=== PATIENT | male | born 1970 | race Caucasian/White ===

== ENCOUNTER 2016-10-16 13:14 | Observation (INO) | payer SELFPAY ==
[~2016-10-16] VITALS: Ht 170.2 cm; Wt 87.9 kg
[2016-10-16] MEDS ORDERED: NITROGLYCERIN OINT 2% 1GM PACKET EXT ONE (13:45)
[2016-10-16] MEDS ORDERED: ONDANSETRON INJ 2 MG/ML 2 ML VIAL IV STA (13:53)
[2016-10-16] MEDS ORDERED: MoRPHine SULFATE 2 MG/ML CARP IV STA ×3 (13:53→19:50)
[2016-10-16 14:01] LABS: BASO % 0.3 %; BASO ABS # 0.02 K/uL (0-0.2); COMPLETE YES; EOS % 2.8 %; HEMATOCRIT 44.6 % (42-52); IG% 0.4 %; LYMPH % 25.8 %; LYMPH ABS # 1.93 K/uL (1.2-3.4); MEAN CELL VOLUME 88.7 fL (80-100); MEAN CORPUSCULAR HEMOGLOBIN 31.2 pg (25-34); MEAN CORPUSCULAR HGB CONC 35.2 g/dl (32-36); MEAN PLATELET VOLUME 11.4 fL (7.4-10.4); MONO % 6.7 %; PLATELET COUNT 189 K/uL (130-400); RED BLOOD COUNT 5.03 M/uL (4.7-6.1); WHITE BLOOD COUNT 7.48 K/uL (4.8-10.8)
[2016-10-16] MEDS ORDERED: ASPI81TA28 PO (14:07)
--- NOTE | 2016-10-16 14:12 | DIAGNOSTIC IMAGING REPORT ---
CHEST ONE VIEW PORTABLE CLINICAL HISTORY: Atypical chest pain COMPARISON STUDY: No previous studies for comparison. FINDINGS: The heart is mildly enlarged. There is no failure. There is no focal pulmonary consolidation. There are no pleural effusions.[ IMPRESSION: Mild cardiomegaly. No evidence of focal pulmonary consolidation. No evidence of failure. Electronically signed by: Steve Rodriguez M.D. 10/16/2016 2:09 PM Dictated Date/Time: 10/16/2016 2:09 PM
[2016-10-16 14:17] LABS: PARTIAL THROMBOPLASTIN RATIO 0.9; PROTHROMBIN TIME (PATIENT) 10.3 SECONDS (9.0-12.0)
[2016-10-16 14:18] LABS: BUN/CREATININE RATIO 8.9 (10-20); CALCIUM 9.2 mg/dl (8.5-10.1); POTASSIUM 4.4 mmol/L (3.5-5.1)
[2016-10-16] MEDS ORDERED: LPT/40 PO (14:25)
[2016-10-16] MEDS ORDERED: METO50TA16 PO (14:25)
[2016-10-16] MEDS ORDERED: CLOP1TAB15 PO (14:25)
--- NOTE | 2016-10-16 15:15 | EMERGENCY ROOM VISIT NOTE ---
History Report prepared by Malou: Torrey Rahman Under the Supervision of: Dr. Yoel Guajardo M.D. First contact with patient: 13:26 Chief Complaint: CARDIAC ASSESSMENT Stated Complaint: CHEST HEAVINESS History of Present Illness The patient is a 45 year old male who presents to the Emergency Room with complaints of an episode of chest pain that occurred around 1 and a half hours ago. He says that he was nauseous and felt like vomiting all morning. He then went to work, and his chest got heavy and achy. His arms went numb, and his legs felt like needles. He also started sweating and getting short of breath. The patient rates the heaviness as a 2 out of 10 in severity, but he notes that it was very uncomfortable. The patient called his primary doctor's office and then decided to come here. Currently, the patient's shortness of breath and chest pain are mostly resolved. He now feels a tightness in his chest with minimal pain. He had a heart attack on the 01 of June, and had 2 stents placed in his left artery. The patient states that his right artery was 30% blocked. He says that the brief episode of chest pain was a bit similar to his heart attack, but his chest pain lasted longer during the heart attack. The patient did take an Aspirin earlier today. He denies any recent Viagra use. Source of History: patient Onset: 1 and a half hours ago Position: chest (pain) Symptom Intensity: heaviness was 2 out of 10 in severity Quality: ache, other (heaviness, now tightness) Timing: other (episode) Associated Symptoms: + SOB (gone now), + nausea, + numbness (arms), No vomiting (but felt like vomiting) Note: Associated symptoms: Legs felt like needles. Sweaty during episode. Review of Systems See HPI for pertinent positives & negatives. A total of 10 systems reviewed and were otherwise negative. Past Medical & Surgical Medical Problems: (1) Bronchitis (2) HTN (hypertension) Surgical Problems: (1) Heart attack (2) Heart attack (3) Hx of stent placement (4) Hx of stent placement Family History Diabetes mellitus Heart disease Hypertension Social History Smoking Status: Current Every Day Smoker Alcohol Use: occasionally Marital Status: single Occupation Status: employed Current/Historical Medications Scheduled Aspirin (Aspirin Ec), 81 MG PO DAILY Atorvastatin (Lipitor), 40 MG PO DAILY Clopidogrel (Plavix), 75 MG PO DAILY Metoprolol Tartrate (Lopressor) (Lopressor), 25 MG PO BID Allergies Coded Allergies: No Known Allergies (Unverified , 10/16/16) Physical Exam Vital Signs Date Time Temp Pulse Resp B/P Pulse Ox O2 Delivery O2 Flow Rate FiO2 10/16/16 14:44 48 13 95 10/16/16 14:39 46 24 95 10/16/16 14:34 49 15 96 10/16/16 14:29 80 15 10/16/16 14:24 48 16 96 10/16/16 14:19 58 20 93 10/16/16 14:17 94 Room Air 10/16/16 14:14 50 13 97 10/16/16 14:09 59 14 97 10/16/16 14:08 68 10/16/16 14:04 59 20 94 10/16/16 14:02 123/86 10/16/16 13:19 36.8 62 20 160/89 100 Room Air Physical Exam Constitutional: Vital signs reviewed. Eyes: Pupils are equal round reactive to light. Conjunctiva are noninjected. ENT: Pharynx is clear without erythema or exudate. Mucous membranes are moist. Neck supple without meningeal signs. Respiratory: Clear to auscultation bilaterally. Breath sounds are equal bilaterally. Cardiovascular: Regular rate and rhythm. No rubs or gallops. GI: Soft, nondistended and nontender. Bowel sounds are present. Musculoskeletal: No peripheral edema. No lower extremity tenderness. Integumentary: No cyanosis. Neurological: The patient is awake and alert. No focal deficits. Psychiatric: Normal affect. Medical Decision & Procedures ER Provider Diagnostic Interpretation: X-ray results as stated below per interpretation by me and the radiologist: CHEST ONE VIEW PORTABLE CLINICAL HISTORY: Atypical chest pain COMPARISON STUDY: No previous studies for comparison. FINDINGS: The heart is mildly enlarged. There is no failure. There is no focal pulmonary consolidation. There are no pleural effusions.[ IMPRESSION: Mild cardiomegaly. No evidence of focal pulmonary consolidation. No evidence of failure. Electronically signed by: Steve Rodriguez M.D. 10/16/2016 2:09 PM Dictated Date/Time: 10/16/2016 2:09 PM Laboratory Results 10/16/16 13:44 Red Blood Count 5.03, Mean Corpuscular Volume 88.7, Mean Corpuscular Hemoglobin 31.2, Mean Corpuscular Hemoglobin Concent 35.2, Mean Platelet Volume 11.4, Neutrophils (%) (Auto) 64.0, Lymphocytes (%) (Auto) 25.8, Monocytes (%) (Auto) 6.7, Eosinophils (%) (Auto) 2.8, Basophils (%) (Auto) 0.3, Neutrophils # (Auto) 4.79, Lymphocytes # (Auto) 1.93, Monocytes # (Auto) 0.50, Eosinophils # (Auto) 0.21, Basophils # (Auto) 0.02 10/16/16 13:44 Test 10/16/16 13:44 10/16/16 13:52 White Blood Count 7.48 K/uL (4.8-10.8) Red Blood Count 5.03 M/uL (4.7-6.1) Hemoglobin 15.7 g/dL (14.0-18.0) Hematocrit 44.6 % (42-52) Mean Corpuscular Volume 88.7 fL (80-100) Mean Corpuscular Hemoglobin 31.2 pg (25-34) Mean Corpuscular Hemoglobin Concent 35.2 g/dl (32-36) Platelet Count 189 K/uL (130-400) Mean Platelet Volume 11.4 fL (7.4-10.4) Neutrophils (%) (Auto) 64.0 % Lymphocytes (%) (Auto) 25.8 % Monocytes (%) (Auto) 6.7 % Eosinophils (%) (Auto) 2.8 % Basophils (%) (Auto) 0.3 % Neutrophils # (Auto) 4.79 K/uL (1.4-6.5) Lymphocytes # (Auto) 1.93 K/uL (1.2-3.4) Monocytes # (Auto) 0.50 K/uL (0.11-0.59) Eosinophils # (Auto) 0.21 K/uL (0-0.5) Basophils # (Auto) 0.02 K/uL (0-0.2) RDW Standard Deviation 40.3 fL (36.4-46.3) RDW Coefficient of Variation 12.6 % (11.5-14.5) Immature Granulocyte % (Auto) 0.4 % Immature Granulocyte # (Auto) 0.03 K/uL (0.00-0.02) Prothrombin Time 10.3 SECONDS (9.0-12.0) Prothromb Time International Ratio 1.0 (0.9-1.1) Activated Partial Thromboplast Time 24.3 SECONDS (21.0-31.0) Partial Thromboplastin Ratio 0.9 Anion Gap 4.0 mmol/L (3-11) Est Creatinine Clear Calc Drug Dose 102.0 ml/min Estimated GFR () 106.4 Estimated GFR (Non- 91.8 BUN/Creatinine Ratio 8.9 (10-20) Calcium Level 9.2 mg/dl (8.5-10.1) Bedside Troponin I 0.000 ng/ml (0-0.045) Laboratory results as reviewed by me. Medications Administered Medications (Trade) Dose Ordered Sig/Pancho Route Start Time Stop Time Status Last Admin Dose Admin Morphine Sulfate (MoRPHine SULFATE INJ) 2 mg NOW STAT IV 10/16/16 13:53 10/16/16 13:54 DC 10/16/16 13:59 2 MG Ondansetron HCl (Zofran Inj) 4 mg NOW STAT IV 10/16/16 13:53 10/16/16 13:54 DC 10/16/16 13:59 4 MG ECG Indication: chest pain Rate (beats per minute): 57 Rhythm: sinus bradycardia Findings: Q waves (Inferior), T-wave inversion (lead 3 and AVF), no ectopy ED Course 1328: The patient was evaluated in room C8. A complete history and physical exam was performed. 1345: Ordered Nitroglycerin 2% Oint 1 inch EXT. 1352: I reevaluated the patient and he says that he gets severe migraines with nitro and would prefer to not get it because it would take him days to recover. He rates his current chest pain as a 1 out of 10. I will give the patient Morphine instead. 1353: Ordered Zofran Inj 4 mg IV, Morphine Sulfate Inj 2 mg IV. 1429: I reevaluated the patient and his chest pain is gone. 1448: I reevaluated the patient and he is chest pain free. I discussed the test results with him and recommended hospitalization. His heart rate is 40-50 but denies having any symptoms with it and his blood pressure is stable. The patient verbally expressed understanding and agreement of the treatment plan. The patient will be evaluated for further treatment. 1452: I discussed the patient with Dr. Santiago Hassan development assistant - he will evaluate the patient for further treatment. Medical Decision This is a 45-year-old male who presents with chest pain. Differential diagnosis includes unstable angina, [place], pleurisy, GERD, pneumonia. I did perform a limited focused review of portions of the patient's old chart on the electronic medical record. The patient has had no prior visits. I did evaluate the patient as noted above. The patient has a history of [place] with 2 stents in May of last year. He is presenting with symptoms similar to his prior [place] but less severe. IV access was established. 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 The patient rates his pain a 2 out of 10 in severity. Initially had ordered nitroglycerin for the patient but he states that he gets severe migraines lasting days if he gets nitroglycerin and so I canceled the order. He was given morphine 2 mg and Zofran 4 g IV. I did order and personally review the patient's 12-lead EKG and chest x-ray as described above. His 12-lead EKG demonstrates Q waves and T wave inversions in the inferior leads as noted above. No old EKGs available for comparison. He does state that he has a 30% blockage in the right coronary artery but that his stents were on the left side. I did order and review the patient's blood work as noted in the electronic medical record. His troponin is negative. I did reassess the patient. He states that his chest discomfort is completely resolved. He has no symptoms at this time. His heart rate goes between 40-50s but the patient denies any lightheadedness or weakness in his blood pressure remained stable. I did discuss the test results with the patient. He did state that he had an aspirin prior to arrival. I did recommend hospitalization for further workup of his symptoms and repeat cardiac enzymes. I did discuss the case with Dr. Henderson and the patient case manager. Consults Time Called: [phone] Consulting Physician: Dr. Santiago Hassan development assistant Returned Call: [phone] I discussed the patient with Dr. Santiago Hassan development assistant - he will evaluate the patient for further treatment. Impression Primary Impression: Precordial chest pain Additional Impressions: Abnormal EKG Bradycardia Scribe Attestation The scribe's documentation has been prepared under my direct and personally reviewed by me in its entirety. I confirm that the note above accurately reflects all work, treatment, procedures, and medical decision making performed by me. Departure Information Dispostion Being Evaluated By Hospitalist Referrals Tio Chávez M.D. (PCP) Patient Instructions My [facility] Problem Qualifiers
[2016-10-16] MEDS ORDERED: ALUMINUM/MAGNESIUM/SIMETH (MAALOX MAX) 30 ML UDC PO PRN (16:00)
[2016-10-16] MEDS ORDERED: ACETAMINOPHEN 325 MG TAB PO PRN (16:00)
[2016-10-16] MEDS ORDERED: POLYETHYLENE (MIRALAX) 17 GM PACK PO PRN (16:00)
[2016-10-16] MEDS ORDERED: ONDANSETRON INJ 2 MG/ML 2 ML VIAL IV PRN (16:00)
[2016-10-16] MEDS ORDERED: MAGNESIUM HYDROXIDE SUSP 30 ML UDC PO PRN (16:00)
[2016-10-16 16:21] VITALS: O2SAT 98; Ht 170.2 cm; Wt 87.9 kg
[2016-10-16] MEDS ORDERED: IV FLUIDS COMPLETED PRN (16:30)
[2016-10-16] MEDS ORDERED: TPRSR/50 PO (16:49)
[2016-10-16] MEDS ORDERED: LSN5 PO (16:49)
[2016-10-16] MEDS ORDERED: OPTIRAY 320 IV PRN (17:00)
[2016-10-16 17:23] LABS: FERRITIN 163.8 ng/ml (8.0-388.0); THYROID STIMULATING HORMONE 1.23 uIu/ml (0.300-4.500)
[2016-10-16 17:59] VITALS: BP 164/76; PULSE 46; TEMP 36.4; O2SAT 99
--- NOTE | 2016-10-16 18:04 | DIAGNOSTIC IMAGING REPORT ---
CHEST COMBO ANGIO DISSECTION CLINICAL HISTORY: Chest pain. Chest heaviness. COMPARISON STUDY: Chest radiograph performed earlier today. TECHNIQUE: Unenhanced and arterial phase imaging of the chest was performed. Injection of 94 cc Optiray 320 IV was uneventful. Sagittal and coronal reconstructions were viewed as well as maximal intensity projections on an independent 3-D workstation. FINDINGS: Caliber of the thoracic aorta is normal. There is no evidence for thoracic aortic intramural hematoma or dissection. Cardiac size is at the upper limits of normal. There is a stent within the right coronary artery. Patency of the stent cannot be assessed on this exam. There is mild to moderate coronary artery calcification. No large central pulmonary embolus is present. The remainder of the pulmonary arteries are inadequately assessed on this exam due to suboptimal opacification. Central airways are patent. There is no consolidation to suggest pneumonia. There is no pneumothorax or pleural effusion. A few tiny pulmonary nodules are likely benign. Bony thorax and upper abdomen are unremarkable. IMPRESSION: 1. No thoracic aortic dissection. 2. No central pulmonary embolus. The remainder of the pulmonary arteries are suboptimally assessed due to suboptimal opacification. 3. No acute intrathoracic findings. 3. Right coronary artery stent in place. Patency of the stent cannot be assessed on this exam. Electronically signed by: Benedict Garrett M.D. 10/16/2016 6:01 PM Dictated Date/Time: 10/16/2016 5:54 PM
--- NOTE | 2016-10-16 18:11 | History and Physical ---
History & Physical Date & Time of Service: Oct 16, 2016 at 17:47 Chief Complaint: Chest Heaviness Primary Care Physician: Tio Chávez M.D. History of Present Illness Source: patient, hospital records This is a 45 y/o male with a history of inferior AK 06/01/16 s/p stent placement 2, CAD, and HTN who presented to the ED on 10/16 with chest pressure, nausea, and numbness. The patient developed chest pressure on the left side of his chest that was accompanied with sweats. He states that he had been nauseous since earlier that morning as well. He denies any acute shortness of breath with the onset of chest pain, however, he states that over the last few days he has had worsening shortness of breath. He is also had numbness and tingling in his arms and legs for the last 3 weeks. At the onset of the chest pain. The patient had completely numbness in his left arm and tingling in his legs bilaterally. The patient had an inferior AK in May 2016 demonstrated [place]. He had 2 stents placed in left coronary arteries, but he is not sure which. The patient denies any particularly strenuous activity today. The patient is a current smoker, although he has greatly cut down. He also reports cutting down his alcohol use. He currently complains of a 1/10 left chest pressure. He is denying any nitroglycerin as this gives him severe headaches. The patient denies fevers, chills, palpitations, claudication, cough, wheezing, vomiting, abdominal pain, dysuria, hematuria, urinary retention, paralysis, weakness. Past Medical/Surgical History Medical Problems: (1) Bronchitis Status: Resolved (2) HTN (hypertension) Status: Chronic H/o inferior AK 06/01/16 Surgical Problems: Hx of stent placement x 2 Status: Resolved Family History Coronary artery disease Diabetes mellitus Heart disease Hypertension Myocardial infarction at age less than 60 Social History Smoking Status: Current Every Day Smoker (1/2 ppd) Smokeless Tobacco Use: No Alcohol Use: socially (1-2 beers/week) Drug Use: none Marital Status: in relationship Housing status: lives with significant other Occupational Status: employed Allergies Coded Allergies: No Known Allergies (Unverified , 10/16/16) Home Medications Scheduled Aspirin (Aspirin Ec), 81 MG PO DAILY Atorvastatin (Lipitor), 40 MG PO DAILY Clopidogrel (Plavix), 75 MG PO DAILY Lisinopril (Lisinopril), 5 MG PO DAILY Metoprolol Succinate (Metoprolol Succinate ER), 25 MG PO BID Review of Systems Constitutional: + sweats, No chills, No fever Eyes: No diplopia, No eye pain, No worsening of vision ENT: No hearing loss, No sore throat, No trouble swallowing Respiratory: + shortness of breath (worsening last few days), No cough, No wheezing Cardiovascular: + chest pain (1/10 chest pressure, left side), No claudication , No palpitations Abdomen: + nausea, No pain, No vomiting Musculoskeletal: No calf pain, No joint pain, No muscle pain Genitourinary - Male: No dysuria, No hematuria, No urinary retention Neurologic: + numbness/tingling (L arm, legs bilaterally. first started 3 weeks ago), No paralysis, No weakness Integumentary: No color change, No itch, No rash Physical Exam Vital Signs Date Time Temp Pulse Resp B/P Pulse Ox O2 Delivery O2 Flow Rate FiO2 10/16/16 16:59 58 20 130/63 96 10/16/16 16:21 98 Room Air 10/16/16 15:22 60 15 125/63 98 Room Air 10/16/16 14:44 48 13 95 10/16/16 14:39 46 24 95 10/16/16 14:34 49 15 96 10/16/16 14:29 80 15 10/16/16 14:24 48 16 96 10/16/16 14:19 58 20 93 10/16/16 14:17 94 Room Air 10/16/16 14:14 50 13 97 10/16/16 14:09 59 14 97 10/16/16 14:08 68 10/16/16 14:04 59 20 94 10/16/16 14:02 123/86 10/16/16 13:19 36.8 62 20 160/89 100 Room Air General Appearance: WD/WN, no apparent distress, + obese Head: normocephalic, atraumatic Eyes: normal inspection, PERRL, EOMI ENT: normal ENT inspection, hearing grossly normal, pharynx normal Neck: supple, no JVD, trachea midline Respiratory/Chest: chest non-tender, lungs clear, normal breath sounds, no respiratory distress Cardiovascular: no gallop, no murmur, + bradycardia (regular rhythm) Abdomen/GI: normal bowel sounds, non tender, soft Extremities/Musculoskelatal: normal inspection, no calf tenderness, no pedal edema Neurologic/Psych: alert, normal mood/affect, oriented x 3 Skin: normal color, warm/dry, no rash Diagnostics Laboratory Results Results Past 24 Hours Test 10/16/16 13:44 10/16/16 13:52 10/16/16 16:28 Range/Units White Blood Count 7.48 4.8-10.8 K/uL Red Blood Count 5.03 4.7-6.1 M/uL Hemoglobin 15.7 14.0-18.0 g/dL Hematocrit 44.6 42-52 % Mean Corpuscular Volume 88.7 80-100 fL Mean Corpuscular Hemoglobin 31.2 25-34 pg Mean Corpuscular Hemoglobin Concent 35.2 32-36 g/dl Platelet Count 189 130-400 K/uL Mean Platelet Volume 11.4 7.4-10.4 fL Neutrophils (%) (Auto) 64.0 % Lymphocytes (%) (Auto) 25.8 % Monocytes (%) (Auto) 6.7 % Eosinophils (%) (Auto) 2.8 % Basophils (%) (Auto) 0.3 % Neutrophils # (Auto) 4.79 1.4-6.5 K/uL Lymphocytes # (Auto) 1.93 1.2-3.4 K/uL Monocytes # (Auto) 0.50 0.11-0.59 K/uL Eosinophils # (Auto) 0.21 0-0.5 K/uL Basophils # (Auto) 0.02 0-0.2 K/uL RDW Standard Deviation 40.3 36.4-46.3 fL RDW Coefficient of Variation 12.6 11.5-14.5 % Immature Granulocyte % (Auto) 0.4 % Immature Granulocyte # (Auto) 0.03 0.00-0.02 K/uL Prothrombin Time 10.3 9.0-12.0 SECONDS Prothromb Time International Ratio 1.0 0.9-1.1 Activated Partial Thromboplast Time 24.3 21.0-31.0 SECONDS Partial Thromboplastin Ratio 0.9 Sodium Level 141 136-145 mmol/L Potassium Level 4.4 3.5-5.1 mmol/L Chloride Level 107 98-107 mmol/L Carbon Dioxide Level 30 21-32 mmol/L Anion Gap 4.0 3-11 mmol/L Blood Urea Nitrogen 9 7-18 mg/dl Creatinine 1.00 0.60-1.40 mg/dl Est Creatinine Clear Calc Drug Dose 102.0 ml/min Estimated GFR () 106.4 Estimated GFR (Non- 91.8 BUN/Creatinine Ratio 8.9 10-20 Random Glucose 106 70-99 mg/dl Calcium Level 9.2 8.5-10.1 mg/dl Magnesium Level 2.2 1.8-2.4 mg/dl Ferritin 163.8 8.0-388.0 ng/ml Thyroid Stimulating Hormone (TSH) 1.230 0.300-4.500 uIu/ml Bedside Troponin I 0.000 0-0.045 ng/ml Diagnostic Radiology Reviewed the following studies and agree with interpretation as follows: Patient Name: DELIA COE Unit Number: [id number] Dictated: 10/16/161408 Transcribed: 10/16/161408 ARG Printed Date/Time: [~ rep prt dt]/[~ rep prt tm] [~ rep ct labl] - [~ rep ct ivnm] [facility] [place] [address] Dictated: 10/16/161408 Transcribed: 10/16/161408 ARG Printed Date/Time: [~ rep prt dt]/[~ rep prt tm] [~ rep ct labl] - [~ rep ct ivnm] Patient: DELIA COE Address1: [address] Rec: [id number] Address2: Acct ID: [id number] [facility] Zip: [place] [address] Date: 1970 Sex: M Room/Bed: Ref Phy: Tio Chávez M.D. SC: LAURENT Att Phy: Report #: [id number] Olya Phy: Tio Chávez M.D. Test: CXR1P Admit Phy: Relationship Specialist: TRACY Interpreting Phy: Steve Rodriguez M.D. Diagnosis: CHEST HEAVINESS Ordering Phy: Yoel Guajardo MD Service Date: 10/16/16 Admit Date: 10/16/16 MNE: [id number] CONF: DICTATED BY: Steve Rodriguez M.D.]] CC: Yoel Guajardo M.D. Jabbour, George M.D. Endcc: [~ rep ct add3]] CHEST ONE VIEW PORTABLE CLINICAL HISTORY: Atypical chest pain COMPARISON STUDY: No previous studies for comparison. FINDINGS: The heart is mildly enlarged. There is no failure. There is no focal pulmonary consolidation. There are no pleural effusions.[ IMPRESSION: Mild cardiomegaly. No evidence of focal pulmonary consolidation. No evidence of failure. Electronically signed by: Steve Rodriguez M.D. 10/16/2016 2:09 PM Dictated Date/Time: 10/16/2016 2:09 PM The status of this report is Signed. Draft = Not yet reviewed or approved by Radiologist. Signed = Reviewed and approved by Radiologist. <AttendingPhy></AttendingPhy> <FamilyPhy>Tio Chávez M.D.</FamilyPhy> < PrimaryPhy>Tio Chávez M.D.</PrimaryPhy> <UnitNumber>[id number]</UnitNumber> <VisitNumber>[id number]</VisitNumber> <PatientName>DELIA COE</PatientName> < DateOfBirth>1970</DateOfBirth> <Location>[facility]</Location> <ServiceDate></ServiceDate> <MNE>ESINDI</MNE> <OrderingPhy>Yoel Guajardo MD</ OrderingPhy> <OrderingPhyMNE>f rep ord dr dash</OrderingPhyMNE> <DictatingPhyMNE> f rep dict dr dash</DictatingPhyMNE> <CCListMNE>f rep ct mne</CCListMNE> < AdmittingPhyMNE>f pt admit dr dash</AdmittingPhyMNE> <AttendingPhyMNE>f pt attend dr dash</AttendingPhyMNE> <ConsultingPhyMNE>f pt consult dr dash</ConsultingPhyMNE> <FamilyPhyMNE>f pt fam dr dash</FamilyPhyMNE> <OtherPhyMNE>f pt other dr dash</OtherPhyMNE> < PrimaryPhyMNE>f pt prim care dr dash</PrimaryPhyMNE> <ReferringPhyMNE>f pt referring dr dash</ReferringPhyMNE> EKG Reviewed EKG and agree with interpretation as follows: 57 bpm, sinus bradycardia, inverted T waves in inferior leads, Q waves in inferior leads Impression Assessment and Plan 45 y/o male with a history of inferior AK 06/01/16 s/p stent placement 2, CAD, and HTN who presented to the ED on 10/16 with chest pressure, nausea, and numbness. Patient afebrile and vital signs stable on arrival. CXR showed no acute disease. EKG showed bradycardia with T-wave inversion and Q waves in inferior leads. Troponin negative. Labs otherwise grossly unremarkable. Left-sided chest pain--pt refusing nitro -Admit to telemetry for observation -Trend cardiac enzymes 3 -EKGs q am and prn with chest pain -Obtain records from [facility] regarding previous AK -NPO after midnight for possible stress test tomorrow if troponins remain negative -STAT CT dissection protocol to rule out dissection as well as PE. If negative , consider starting heparin drip H/o AK s/p stents x 2, CAD, HTN--BP stable -Continue aspirin, Plavix -Continue atorvastatin 40 mg PO qd, metoprolol succinate 25 mg PO BID, and lisinopril 5 mg PO qd Numbness/tingling -Check TSH, B12 and ferritin GI prophylaxis -Maalox Max 15 mL PO q4h prn dyspepsia -Milk of magnesia 30 mL PO q6h prn constipation -Miralax 17 gm PO qd prn constipation -Zofran 4 mg IV q6h prn nausea DVT prophylaxis -Enoxaparin 40 mg SC q24h -OSCAR warren and SCDs Code Status -Level I, FULL RESUSCITATION STATUS This chart was completed in part utilizing [employer] Speech Voice Recognition software. Attempts were made to minimize the grammatical errors, random word insertions, pronoun errors and incomplete sentences. Any formal questions or concerns about the content, text or information contained within the body of this dictation should be directly addressed to the provider for clarification. Level of Care Telemetry Advanced Directives Existing Living Will: No Existing Power of Preparation Supervisor Freezing: No Resuscitation Status FULL RESUSCITATION VTE Prophylaxis VTE Risk Assessment Done? Y/N: Yes Risk Level: Moderate Given or contraindicated: Enoxaparin (Lovenox)SQ, T.E.D. Stockings, SCD's Note Attending Admission note & Attestation: Pt seen/examined, chart reviewed, care plan d/w MISSY Concepcion. I agree w/ the pettit components of her documentation. 45yo male with known CAD, s/p inferior wall STEMI in 05/2016 with 2 stents ([facility]), presenting with left-sided chest pain radiating to the left scapula. Associated nausea and left arm symptoms. He also complains of restless legs type symptoms and paresthesias in the left arm and both legs. Latter present for several weeks. Did indeed refuse nitro multiple times today due to fear of inducing a migraine headache. Only agreeable to using morphine prn for chest discomfort. Shortly after I evaluated him, due to the arm symptoms and radiation to the back , we performed CTA dissection protocol. CTA was negative for PE or dissection. PMH, PSH, allergies, meds, sochx, famhx, ros - reviewed HR <60, o/w VSS gen - anxious neck - no JVD heart - nicki, s1, s2, no murmur lungs - CTA b/l chest - no reproducible chest wall pain abd - soft, NT ext - no edema neuro - legs appear "restless" throughout the visit psych - anxious A/P: Ongoing chest symptoms with negative work-up to date. Known CAD s/p AK 2015 with 2 stents deployed. I am unclear if his symptoms are ischemic in nature or due to other process. until more information is available will place on heparin drip in the event he is having unstable angina. Serial troponin levels. He appears to have restless legs. Check ferritin level, r/o Fe deficiency; check TSH; check b12. consider mirapex. NPO after MN tonight in the event he needs cardiac testing. John Henderson MD
[2016-10-16] MEDS ORDERED: HEPARIN IV LOW DOSE NO BOLUS SCH (18:37)
[2016-10-16] MEDS ORDERED: NITROGLYCERIN 0.4 MG SL PER TAB CHARGE SL PRN (19:45)
[2016-10-16] MEDS ORDERED: NICOTINE 7 MG/24 HR TDSY TD ONE (19:49)
[2016-10-16 19:54] VITALS: BP 125/69; PULSE 51; TEMP 36.7; O2SAT 97
[2016-10-16] MEDS ORDERED: MoRPHine SULFATE 2 MG/ML CARP ONE (20:02)
[2016-10-16 20:08] VITALS: BP 145/82; PULSE 55; O2SAT 97
[2016-10-16 20:22] VITALS: O2SAT 97
[2016-10-16] MEDS ORDERED: ASPIRIN 81 MG CHEW PO ONE (20:30)
[2016-10-16] MEDS: METOPROLOL SUCC 50MG EXT REL TAB PO SCH (20:35)
[2016-10-16 20:37] LABS: CKMB/CK RATIO 0.9 (0-3.0)
[2016-10-16] MEDS: HEPARIN 25,000 UNIT/500ML D5W 500 ML IV PRN (20:37)
[2016-10-16] MEDS ORDERED: METOPROLOL TARTRATE 25 MG TAB PO SCH (21:00)
[2016-10-16 22:46] LABS: CKMB/CK RATIO 0.9 (0-3.0)
--- NOTE | 2016-10-16 23:18 | Progress Note ---
Progress Note Date of Service Oct 16, 2016. Progress Note Phoned by nursing at approximately 19:45 stating that patient continued to have chest pain. I asked nursing to repeat EKG. I also ordered 0.4 Nitroglycerine SL tab, but was told by nurse that he was declining it. I also repeated 1 troponin. I went up to assess the patient. I arrived at the beside to assess. Patient states that overall chest pain is improved but still does have lingering pressure. He declines Nitroglycerine SL or paste because he has gotten bad headache when he got it with his first WI and wants to avoid that at all costs. Overall states that the chest pain is better. Vital signs were reviewed and normal Patient had regular rate and rhythm, normal S1 and S2 with no murmur, and normal pulses Repeat EKG revealed no changes acute changes since admission EKG. Plan: - 2 mg Morphine given to patient. Recommended attempting Nitro paste with chest pressure. - Reviewed EMR. Patient only got 81 mg ASA so I ordered additional 243 mg ASA for a total of 324 mg. - Heparin drip ordered by admitting MD. I have left this on for now and day team and can re-assess whether it is required. - Troponin reviewed from approximately 19:00 and 22:00. Both were negative. - Will continue to follow through evening in case of acute change in clinical status.
[2016-10-16] MEDS ORDERED: PRAMIPEXOLE DIHYDROCHLORIDE 0.5 MG TAB PO ONE (23:19)
[2016-10-16] MEDS ORDERED: PRAMIPEXOLE DIHYDROCHLORIDE 0.5 MG TAB PO PRN (23:30)
[2016-10-17 04:41] VITALS: BP 112/70; PULSE 53; TEMP 36.6; O2SAT 93
[2016-10-17 05:40] LABS: HEMATOCRIT 44.4 % (42-52); MEAN CELL VOLUME 88.8 fL (80-100); MEAN CORPUSCULAR HEMOGLOBIN 31.6 pg (25-34); MEAN CORPUSCULAR HGB CONC 35.6 g/dl (32-36); MEAN PLATELET VOLUME 11.1 fL (7.4-10.4); PLATELET COUNT 173 K/uL (130-400)
[2016-10-17 05:52] LABS: PARTIAL THROMBOPLASTIN RATIO 1.2
[2016-10-17] MEDS ORDERED: HEPARIN IV BOLUS 4,500 UNIT in SYRINGE 0 ML IV ONE (06:15)
[2016-10-17] MEDS: HEPARIN 25,000 UNIT/500ML D5W 500 ML IV PRN (06:16)
[2016-10-17 06:21] LABS: BLOOD UREA NITROGEN 10 mg/dl (7-18); BUN/CREATININE RATIO 9.3 (10-20); CALCIUM 8.8 mg/dl (8.5-10.1); CARBON DIOXIDE 29 mmol/L (21-32); CHLORIDE 105 mmol/L (98-107); GLUCOSE 143 mg/dl (70-99); POTASSIUM 4.1 mmol/L (3.5-5.1); SODIUM 139 mmol/L (136-145)
[2016-10-17 06:26] LABS: CKMB/CK RATIO 1.1 (0-3.0)
[2016-10-17 07:21] VITALS: BP 119/66; PULSE 49; TEMP 36.7; O2SAT 98
[2016-10-17] MEDS ORDERED: ENOXAPARIN 40 MG/0.4 ML SYR SC SCH (09:00)
[2016-10-17] MEDS ORDERED: NICOTINE 7 MG/24 HR TDSY TD SCH (09:00)
[2016-10-17] MEDS ORDERED: ASPIRIN 81 MG ECTAB PO SCH (09:00)
[2016-10-17] MEDS ORDERED: ATORVASTATIN 40 MG TAB PO SCH (09:00)
[2016-10-17] MEDS ORDERED: CLOPIDOGREL BISULFATE 75 MG TAB PO SCH (09:00)
[2016-10-17] MEDS ORDERED: LISINOPRIL 5 MG TAB PO SCH (09:00)
[2016-10-17] MEDS: METOPROLOL SUCC 50MG EXT REL TAB PO SCH (10:46)
--- NOTE | 2016-10-17 11:40 | CARDIOLOGY CONSULTATION ---
DATE OF CONSULTATION: 10/17/2016 DATE OF CONSULTATION: 10/17/2016. REFERRING PHYSICIAN: Dr. Ирина Brown. CHIEF COMPLAINT: Chest pain. HISTORY OF PRESENT ILLNESS: Mr. Todd Dupree is a 45-year-old gentleman with a history of coronary artery disease having suffered an acute myocardial infarction in May 2016. The patient had done well since his initial event and stated that after his percutaneous intervention, he actually felt much better. He is an active individual who generally has no limitations with respect to activity but has recently noted some increasing dyspnea, tiredness and fatigue primarily associated with ascending and descending stairs. It seems yesterday he experienced the acute onset of severe substernal chest discomfort that he describes as a pressure or squeezing sensation in the precordium. This later generalized to involve some paresthesias of his left side, described as numbness and tingling in the left arm, side and fingers. He also had some tingling sensation and paresthesias in his legs as well. The chest pain itself persisted to a lesser degree for an extended period of time. He describes it as a fairly dull aching and wheezing sensation that seemed to wax and wane in severity over the course of a few hours. He contacted his primary care physician who advised an evaluation in the Emergency Department where he was administered narcotics and obtained some relief. Seems to symptoms continued to wax and wane throughout the course of the evening despite narcotic administration. The patient did not allow any administration of nitroglycerin due to a prior history of migraines and severe headaches associated with that medication. He had some very mild diaphoresis associated with this episode and mild dyspnea, but he denied other associated symptoms. When asked about similarities between this event and his initial myocardial infarction he stated that the 2 were different in the pain during his myocardial infarction was much worse and quite sharp in nature. This morning the patient claims to be feeling well. He states all of his symptoms have resolved. He no longer has symptoms of chest pain or paresthesias and is feeling well. PAST MEDICAL HISTORY: Significant for: 1. Coronary artery disease suffering an acute inferior myocardial infarction in May 2016. This resulted in percutaneous intervention involving a stent to the mid right coronary artery. At that time he was also noted to have nonobstructive disease in the mid LAD estimated at 30-40% stenosis. 2. Congestive heart failure. Echocardiography performed at the time of his myocardial infarction revealed EF in the range of 40% with inferior wall motion abnormalities and evidence of diastolic dysfunction. 3. Alcoholism and possible prior varicocele bleeding. 4. Mild mitral regurgitation. 5. Hypertension. 6. Orthopedic disease. PAST SURGICAL HISTORY: None. OUTPATIENT MEDICATIONS: Included atorvastatin, aspirin, clopidogrel, lisinopril, metoprolol. MEDICAL ALLERGIES: No known medical allergies. FAMILY HISTORY: Appears to be significant for premature coronary disease. SOCIAL HISTORY: The patient has a history of alcoholism and alcohol abuse. He is a current smoker. He denied illicit drug abuse currently. REVIEW OF SYSTEMS: A complete 10-system review of systems was performed and the pertinent positives noted in the history of present illness. The remainder being negative. He did report some mild dyspnea over the past few weeks. This appears to be related almost exclusively to ascending and descending stairs. He does have some orthopedic complaints primarily involving his left ankle which he states dislocates frequently and causes some difficulty with ambulation. He has some other joint pains that are fairly chronic in nature including back pain. PHYSICAL EXAMINATION: GENERAL: The patient does not appear to be in any acute distress. He is a pleasant individual who is alert and oriented. Mood and affect appeared normal. He answered all questions appropriately. CURRENT VITAL SIGNS: Include blood pressure 119/66 with a pulse of 49. HEAD, EYES, EARS, NOSE, AND THROAT: His sclerae are anicteric. Pupils equal, reactive to light and accommodation. Extraocular movements were intact. Palpation of submandibular region did not reveal any significant lymphadenopathy. The carotids are palpable bilaterally. There are no bruits on auscultation. I did not appreciate any jugular venous distention. The thyroid is not enlarged. LUNGS: Auscultation of his lungs revealed good air movement. There were no rales, wheezes or rhonchi. He had normal respiratory effort without use of accessory muscles. CARDIAC EXAMINATION: Revealed him to be in a regular rhythm, S1, S2 appear to be normal. There were no murmurs appreciated. PMI was not markedly displaced on palpation. EXTREMITIES: Evaluation of both wrists revealed radial pulses that were equal in intensity. There is no evidence of cyanosis or clubbing. Evaluation of lower extremities did not reveal any significant peripheral edema. The patient did have multiple tattoos but no additional rashes were seen. LABORATORY STUDIES: Obtained since admission include a white cell count of 8, hemoglobin of 15 and a platelet count of 173. Sodium is 139, potassium is 4.1, BUN was 10, creatinine was 1.1. Serial cardiac biomarkers were all less than detectable limit. Serial 12-lead EKGs were also obtained, which did reveal evidence of an old inferior myocardial infarction. There were no dynamic changes. The remainder of the EKG unremarkable with the exception of some bradycardia. The patient did undergo a CT PE protocol due to some complaints of chest discomfort and back discomfort. This did not reveal any evidence of thoracic dissection or pulmonary embolus. A single view chest x-ray was also obtained which did not reveal any evidence of acute cardiopulmonary disease. ASSESSMENT AND PLAN: 1. Noncardiac chest pain. The patient had a fairly extended episode of relatively severe and then mild discomfort in his chest that was distinct from his index myocardial infarction. Symptoms themselves were somewhat different and also involved significant element of arm and leg paresthesias. Despite the extent and nature of his episode all of his cardiac biomarkers are normal and therefore I would discount this as an acute coronary syndrome. As such, I do not feel additional noninvasive testing is required. This is likely only going to complicate matters given his known history of abnormal wall motion abnormalities and recent OK. 2. Coronary artery disease. The patient appears to be on aggressive medical regimen for coronary artery disease including high dose atorvastatin and dual antiplatelet therapy. 3. Congestive heart failure. The patient's records obtained suggest an element of ischemic cardiomyopathy. This was in the acute setting and may have improved. An echo is scheduled for evaluation today. He is on a medical regimen consisting of beta micky and REA inhibitor. His lung exam is normal as was his x-ray. He does have some dyspnea on exertion but once again this is related almost exclusively to ascending and descending stairs and probably does not represent any form of longstanding pulmonary vascular congestion. I do not see an urgent need for diuretic therapy at this point. 4. Tobacco abuse. The patient was counseled regarding need to discontinue tobacco. 5. Mitral regurgitation. This was mild on prior echocardiogram and may be related to his recent infarct and inferior wall motion abnormality will be reassessed on echocardiography today. 6. Bradycardia: No symptoms at rest. Related to his beta micky. Possibly an element of chronotropic incompetence given his low heart rates and symptoms of fatigue with some forms of exertion. [facility]
--- NOTE | 2016-10-17 12:26 | ECHOCARDIOGRAM REPORT ---
*NOTICE TO RECEIVING [employer] This information is strictly Confidential and protected under [place] law. [place] law prohibits you from making any further disclosure of this information unless further disclosure is expressly permitted by the written consent of the person to whom it pertains or is authorized by law. A general authorization for the release of medical or other information is not sufficient for this purpose. Hospital accepts no responsibility if the information is made available to any other person, INCLUDING THE PATIENT. Interpretation Summary * Name: DELIA COE Study Date: 10/17/2016 10:40 AM BP: 119/66 mmHg * Patient Location: [facility]\S\N287\S\2 HR: 43 * : 1970 (M/d/yyyy) Gender: Male Height: 67 in * Age: 45 yrs Ethnicity: [place] Weight: 193 lb * Ordering Physician: Demario Benavides * Referring Physician: Self, Referred * Performed By: Cande Velasco [facility] * * Reason For Study: CHEST PAIN * BSA: 2.0 m2 * -- Conclusions -- * Left ventricular systolic function is mildly reduced. * There are regional wall motion abnormalities as specified. * The left atrium is borderline dilated. * Right ventricular systolic pressure is normal. * Borderline aortic root dilatation. Procedure Details * A complete two-dimensional transthoracic echocardiogram was performed (2D, M-mode, Doppler and color flow Doppler). Left Ventricle * The left ventricle is normal in size. * There is normal left ventricular wall thickness. * Left ventricular systolic function is mildly reduced. * Ejection Fraction = 45-50%. * Diastolic function appears normal. * There are regional wall motion abnormalities as specified. * The inferior wall from base to mid ventricle is hyperechoic and moderate to severely hypokinetic suggesting old infarct. Right Ventricle * The right ventricle is normal in size and function. Atria * The left atrium is borderline dilated. * Right atrial size is normal. Mitral Valve * The mitral valve anatomy is normal. * Significant mitral regurgitation is absent. Tricuspid Valve * The tricuspid valve is not well visualized, but is grossly normal. * There is trace tricuspid regurgitation. * Right ventricular systolic pressure is normal. Aortic Valve * The aortic valve is normal in structure and function. * No hemodynamically significant valvular aortic stenosis. * There is no significant aortic regurgitation. Great Vessels * Borderline aortic root dilatation. Pericardium/Pleural * There is no pericardial effusion. Great Vessels * Normal inferior vena cava diameter and respiratory variation suggests normal central venous pressure. MMode 2D Measurements and Calculations IVSd 1.1 cm IVSs 1.6 cm LVIDd 4.4 cm LVIDs 3.3 cm LVPWd 1.1 cm LVPWs 1.3 cm IVS/LVPW 1.0 FS 25.6 % EDV(Teich) 87.2 ml ESV(Teich) 43.0 ml EF(Teich) 50.7 % EDV(cubed) 84.6 ml ESV(cubed) 34.8 ml EF(cubed) 58.8 % % IVS thick 41.0 % % LVPW thick 18.6 % LV mass(C)d 167.9 grams LV mass(C)dI 84.3 grams/m\S\2 LV mass(C)s 162.1 grams LV mass(C)sI 81.4 grams/m\S\2 SV(Teich) 44.2 ml SI(Teich) 22.2 ml/m\S\2 SV(cubed) 49.8 ml SI(cubed) 25.0 ml/m\S\2 Ao root diam 4.0 cm Ao root area 12.7 cm\S\2 LA dimension 4.0 cm LA/Ao 0.98 LVOT diam 2.0 cm LVOT area 3.2 cm\S\2 LVAd ap4 34.3 cm\S\2 LVLd ap4 7.7 cm EDV(MOD-sp4) 127.6 ml EDV(sp4-el) 129.3 ml LVAs ap4 21.7 cm\S\2 LVLs ap4 6.6 cm ESV(MOD-sp4) 60.1 ml ESV(sp4-el) 60.8 ml EF(MOD-sp4) 52.9 % EF(sp4-el) 53.0 % LVAd ap2 35.8 cm\S\2 LVLd ap2 8.3 cm EDV(MOD-sp2) 127.8 ml EDV(sp2-el) 131.5 ml LVAs ap2 20.5 cm\S\2 LVLs ap2 6.5 cm ESV(MOD-sp2) 53.7 ml ESV(sp2-el) 54.5 ml EF(MOD-sp2) 58.0 % EF(sp2-el) 58.6 % LVLd %diff 6.5 % EDV(MOD-bp) 132.0 ml LVLs %diff -0.88 % ESV(MOD-bp) 57.3 ml EF(MOD-bp) 56.6 % SV(MOD-sp4) 67.6 ml SI(MOD-sp4) 33.9 ml/m\S\2 SV(MOD-sp2) 74.1 ml SI(MOD-sp2) 37.2 ml/m\S\2 SV(MOD-bp) 74.7 ml SI(MOD-bp) 37.5 ml/m\S\2 SV(sp4-el) 68.5 ml SI(sp4-el) 34.4 ml/m\S\2 SV(sp2-el) 77.0 ml SI(sp2-el) 38.7 ml/m\S\2 Doppler Measurements and Calculations MV E max deann 115.4 cm/sec MV A max deann 42.6 cm/sec MV E/A 2.7 MV P1/2t max deann 108.3 cm/sec MV P1/2t 108.1 msec MVA(P1/2t) 2.0 cm\S\2 MV dec slope 293.4 cm/sec\S\2 MV dec time 0.18 sec Ao V2 max 138.9 cm/sec Ao max PG 7.7 mmHg Ao max PG (full) 2.9 mmHg BRITTANY(V,A) 2.5 cm\S\2 BRITTANY(V,D) 2.5 cm\S\2 LV V1 max PG 4.8 mmHg LV V1 max 109.5 cm/sec PA V2 max 111.8 cm/sec PA max PG 5.0 mmHg PI max deann 134.2 cm/sec PI max PG 7.2 mmHg PI dec slope 47.8 cm/sec\S\2 PI P1/2t 821.7 msec TR max deann 183.6 cm/sec
[2016-10-17] MEDS ORDERED: MRP5 PO (12:35)
[2016-10-17] MEDS ORDERED: NTRSLP4 SL (12:38)
--- NOTE | 2016-10-17 12:44 | Discharge Instructions ---
Discharge Instructions Date of Service Oct 17, 2016. Admission Reason for Admission: Chest Pain Discharge Discharge Diagnosis / Problem: Chest Rinu-roo-wshlpxi Discharge Goals Goal(s): Decrease discomfort, Improve function, Increase independence Activity Recommendations Activity Limitations: as noted below Lifting Limitations: gradually increase as tolerated Exercise/Sports Limitations: gradually increase as tolerated . Instructions / Follow-Up Instructions / Follow-Up Chest Pain: - You were admitted to the hospital for chest pain and heart rhythm monitoring. - Blood test to evaluate your cardiac enzymes were negative and an ultrasound of your heart is consistent with previous ultrasounds without new findings.Your ejection fraction did improve slightly to 45-50% (up from 35-40%) - This chest pain that you've been experiencing does not appear to be a new cardiac event. It is possible that your increased nasal congestion and postnasal drip may have contributed to your shortness of breath, upset stomach, and chest pain. This could also have been related to a gastrointestinal or musculoskeletal problem as well. 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 Even though this medication can cause a headache, would recommend using when you have significant chest pain, especially in the setting of your previous cardiac history - If you develop chest pain you may take 1 tablet under the tongue and if your chest pain does not resolve, you may take another dose in 5 minutes; you can continue this up to 3 doses but if pain does not subside you need to call 911. Smoking: - With your history of smoking would recommend discussion with your family doctor about obtaining pulmonary function testing to evaluate your breathing and for the development of a condition called chronic obstructive pulmonary disease (Emphysema). Follow-Up: PLEASE KEEP YOUR PREVIOUSLY ESTABLISHED APPOINTMENTS WITH YOUR FAMILY DOCTOR AND WOOD ENGRAVER Current Hospital Diet Patient's current hospital diet: AHA Diet (Heart Healthy) Discharge Diet Recommended Diet: AHA Diet (Heart Healthy) Pending Studies Studies pending at discharge: no Medical Emergencies . Who to Call and When: Medical Emergencies: If at any time you feel your situation is an emergency, please call 911 immediately. . Non-Emergent Contact Non-Emergency issues call your: Primary Care Provider Call Non-Emergent contact if: you have a fever, your pain is concerning you, you have any medication questions . . "Provider Documentation" section prepared by Caitlin Drummond. . VTE Core Measure Inpt VTE Proph given/why not?: Enoxaparin (Lovenox)LIANG, T.E.Rupa. Stockings, SCD's
[2016-10-17 13:24] LABS: PARTIAL THROMBOPLASTIN RATIO 1.2
[2016-10-17 13:40] VITALS: BP 119/66; PULSE 49; TEMP 36.7; O2SAT 98
--- NOTE | 2016-10-17 16:51 | Discharge Summary ---
Discharge Summary Date of Service Oct 17, 2016. (Caitlin Drummond PA-C) Discharge Summary Admission Date: Oct 16, 2016 at 15:56 Discharge Date: Oct 17, 2016 Discharge Disposition: Home Principal Diagnosis: Chest Pain Problems/Secondary Diagnoses: 1. Alcohol Abuse 2. Tobacco Abuse 3. Marijuana Use 4. H/O Polysubstance Abuse Procedures: 1. CHEST ONE VIEW PORTABLE CLINICAL HISTORY: Atypical chest pain COMPARISON STUDY: No previous studies for comparison. FINDINGS: The heart is mildly enlarged. There is no failure. There is no focal pulmonary consolidation. There are no pleural effusions.[ IMPRESSION: Mild cardiomegaly. No evidence of focal pulmonary consolidation. No evidence of failure. 2, CHEST COMBO ANGIO DISSECTION CLINICAL HISTORY: Chest pain. Chest heaviness. COMPARISON STUDY: Chest radiograph performed earlier today. TECHNIQUE: Unenhanced and arterial phase imaging of the chest was performed. Injection of 94 cc Optiray 320 IV was uneventful. Sagittal and coronal reconstructions were viewed as well as maximal intensity projections on an independent 3-D workstation. FINDINGS: Caliber of the thoracic aorta is normal. There is no evidence for thoracic aortic intramural hematoma or dissection. Cardiac size is at the upper limits of normal. There is a stent within the right coronary artery. Patency of the stent cannot be assessed on this exam. There is mild to moderate coronary artery calcification. No large central pulmonary embolus is present. The remainder of the pulmonary arteries are inadequately assessed on this exam due to suboptimal opacification. Central airways are patent. There is no consolidation to suggest pneumonia. There is no pneumothorax or pleural effusion. A few tiny pulmonary nodules are likely benign. Bony thorax and upper abdomen are unremarkable. IMPRESSION: 1. No thoracic aortic dissection. 2. No central pulmonary embolus. The remainder of the pulmonary arteries are suboptimally assessed due to suboptimal opacification. 3. No acute intrathoracic findings. 4. Right coronary artery stent in place. Patency of the stent cannot be assessed on this exam. 3. ECHOCARDIOGRAM * Left ventricular systolic function is mildly reduced - EF 45-50% * Normal diastolic function * There are regional wall motion abnormalities - inferior wall from base to mid-ventricle hyperechoic and moderate to severely hypokinetic suggesting old infarct * The left atrium is borderline dilated. * Right ventricular systolic pressure is normal. * Borderline aortic root dilatation. Consultations: 1. Cardiology (Caitlin Drummond PA-C) Problems/Secondary Diagnoses: Chronic systolic CHF with EF 45% (Ирина Brown MD) Medication Reconciliation New Medications: Nitroglycerin (Nitrostat) 0.4 Mg/1 Tab Subl 0.4 MG SL PRN PRN for Chest Pain, #10 Continued Medications: Aspirin (Aspirin Ec) 81 Mg Tab 81 MG PO DAILY Atorvastatin (Lipitor) 40 Mg Tab 40 MG PO DAILY, TAB Clopidogrel (Plavix) 75 Mg Tab 75 MG PO DAILY, TAB Lisinopril (Lisinopril) 5 Mg Tab 5 MG PO DAILY Metoprolol Succinate (Metoprolol Succinate ER) 50 Mg Tabcr 25 MG PO BID Discharge Exam REVIEW OF SYSTEMS: General/Constitutional: Denies fever/chills, fatigue, weakness, weight gain/loss ENT: +nasal congestion, +post-nasal drip; Denies visual changes, hearing loss, sore throat, trouble swallowing Cardiovascular: +chest pain (resolved); Denies palpitations, edema Respiratory: Denies cough, sputum, SOB, wheezing, orthopnea GI: +nausea; Denies vomiting, abdominal pain, constipation, diarrhea, melena/ hematochezia : Denies dysuria, frequency, hematuria Musculoskeletal: Denies joint/muscle aches, weakness, swelling Neurologic: Denies dizziness/lightheadedness, numbness/tingling, weakness Psychiatric: +increased anxiety/stress, H/O alcohol abuse (30-40 beers) continue to drink 2-3 intermittently; +tobacco use Endocrine: Deferred Hematologic/Lymphatic: Denies bleeding/clotting abnormalities Skin: Denies rash, itch, new skin changes, easy bruising Allergy/Immunologic: Deferred PHYSICAL EXAM:: General Appearance: WDWN in NAD but slightly anxious/rapid speech and mildly disheveled who is A&O x 3 HEENT: Head is normocephalic/atraumatic; EOMI; PERRLA; Hearing grossly intact; Mucous membranes moist; Pharynx negative for exudate/lesions but erythematous Neck: Supple; Trachea midline; Neg JVD; Neg lymphadenopathy Heart: RRR with no M/G/R Lungs: CTA in all lung mahan bilaterally; Respirations unlabored; Neg accessory muscle use Abdomen: Soft, non-tender, non-distended; Positive BS x 4 quadrants; Neg organomegaly Extremities: Capillary refill < 2 seconds; Neg cyanosis or edema Neurological: Speech clear/rapid; Gross motor/sensory function intact; Neg focal neurologic deficits Psychiatric: Appropriate mood/affect; mildly anxious appearing Skin: Normal Color; Warm/Dry; Neg rashes, ecchymosis, lacerations/ulcerations; multiple tattoos over body (Caitlin Drummond, ROMY) Hospital Course ADMISSION: This is a 45 y/o male with a history of inferior IL 06/01/16 s/p stent placement 2, CAD, and HTN who presented to the ED on 10/16 with chest pressure, nausea, and numbness. The patient developed chest pressure on the left side of his chest that was accompanied with sweats. He states that he had been nauseous since earlier that morning as well. He denies any acute shortness of breath with the onset of chest pain, however, he states that over the last few days he has had worsening shortness of breath. He is also had numbness and tingling in his arms and legs for the last 3 weeks. At the onset of the chest pain. The patient had completely numbness in his left arm and tingling in his legs bilaterally. The patient had an inferior IL in May 2016 demonstrated [place]. He had 2 stents placed in left coronary arteries, but he is not sure which. The patient denies any particularly strenuous activity today. The patient is a current smoker, although he has greatly cut down. He also reports cutting down his alcohol use. He currently complains of a 1/10 left chest pressure. He is denying any nitroglycerin as this gives him severe headaches. The patient denies fevers, chills, palpitations, claudication , cough, wheezing, vomiting, abdominal pain, dysuria, hematuria, urinary retention, paralysis, weakness. HOSPITAL COURSE: Mr. Dupree was admitted for left-sided chest pain and complaints of MIRANDA. Given his significant history of recent IL and stent placement he was admitted for chest pain rule out. EKGs remained consistent for T-wave inversion in leads II and aVF. Given his history, cardiology was consulted for recommendations. He was initiated on heparin drip and offered nitroglycerin. He refused nitroglycerin due to significant headaches in the past. Given the atypical nature of his pain he was not stressed but an echo was obtained due to this MIRANDA. Echocardiogram is largely unchanged from previous evaluation. Upon further discussion, patient reports increased nasal congestion and postnasal drip over the past 2 weeks when this MIRANDA started. He also reports continuing alcohol consumption, cigarette smoking, and intermittent marijuana smoking. He also reports significant stress and anxiety. In regards to the chest pain he stated he had relief with ASA 81 mg. He was discharged home with his current medication regimen of ASA, Atorvastatin , Plavix, Lisinopril, and Metoprolol. He was provided a prescription for nitroglycerin tablets and instructed to use these if necessary regardless of history of headaches with use. Patient reports a PCP follow-up appointment for 10/22 and states he follows up with cardiology monthly. Patient is optimal for discharge home with outpatient follow-up. Total Time Spent: Greater than 30 minutes This includes examination of the patient, discharge planning, medication reconciliation, and communication with other providers. (Caitlin Drummond PA-C) Discharge Instructions Please refer to the electronic Patient Visit Report (Discharge Instructions) for additional information. (Caitlin Drummond PA-C) Additional Copies To Tio Chávez M.D. 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 Discussed with MISSY Drummond and agree with findings and plan as documented in the note. Any exceptions or clarifications are listed here: Pt feeling much better, no CP or MIRANDA. ECHO result reviewed with him and shows mild improvement in EF from previous reports although previous ECHO not available for review for our Property Handler-just report alone. He was counseled extensively on importance of smoking cessation (both cigarettes and marijuana). Stable for discharge to home and f/u with PCP and Property Handler. He should remain out of work for 3 days. VSS NAD, AAOx3 RRR no mgr CTAB no wcr Abd +BS soft NT ND Ext no edema Skin no rashes, multiple tattoos Documented By: Ирина Brown (Ирина Brown MD)
== END 2016-10-17 14:00 | disposition home or self-care (01) ==
LOC: ENRESERVTM → ENRESERVDT → C.EDB 13:17 → C.MED 15:56
PROVIDERS: ADMIT Internal Medicine; ATTEND Family Medicine
DX: R07.89 Other chest pain (principal); R94.31 Abnormal electrocardiogram [ECG] [EKG]; F10.10 Alcohol abuse, uncomplicated; I34.0 Nonrheumatic mitral (valve) insufficiency; F17.200 Nicotine dependence, unspecified, uncomplicated; I10 Essential (primary) hypertension; F12.10 Cannabis abuse, uncomplicated; I25.10 Atherosclerotic heart disease of native coronary artery without angina pectoris; I25.2 Old myocardial infarction; Z98.61 Coronary angioplasty status; Z79.82 Long term (current) use of aspirin; Z82.49 Family history of ischemic heart disease and other diseases of the circulatory system; Z83.3 Family history of diabetes mellitus